=== PATIENT | female | born 1990 | race Caucasian/White ===

== ENCOUNTER 2017-04-11 22:10 | Emergency (ER) | payer BC ==
[~2017-04-11] VITALS: Ht 175.3 cm; Wt 87.0 kg
[2017-04-11 22:12] VITALS: BP 123/73; PULSE 86; TEMP 98.1
[2017-04-11 22:45] LABS: COLLECTION METHOD CLEAN CATCH
[2017-04-11 22:56] LABS: MUCOUS Present /lpf; PH 8 (5-8); SQUAMOUS EPITHELIAL None Seen /hpf; URINE APPEARANCE Cloudy; URINE BACTERIA Moderate /hpf; URINE BILIRUBIN Negative (NEGATIVE); URINE BLOOD 3+ (NEGATIVE); URINE COLOR Yellow; URINE GLUCOSE Negative (NEGATIVE); URINE KETONE Negative (NEGATIVE); URINE LEUKOCYTE ESTERASE Negative (NEGATIVE); URINE PROTEIN(semi-quant) 1+ (NEGATIVE); URINE RBC >50 /hpf; URINE UROBILINOGEN Negative (NEGATIVE)
[2017-04-11] MEDS ORDERED: MACROBID 1100 MG/CAP PO (22:57)
== END 2017-04-11 23:14 | disposition home or self-care (01) ==
LOC: COL.ER 22:10
PROVIDERS: Family Medicine
DX: O23.12 Infections of bladder in pregnancy, second trimester (principal); Z3A.22 22 weeks gestation of pregnancy